=== PATIENT | male | born 1945 | race Asian ===

== ENCOUNTER 2017-03-17 08:00 | Inpatient (IN) | payer MEDICARE, MEDICAID ==
[2017-03-17] VITALS (66 sets, daily range): BP systolic 68–249; BP diastolic 38–126
[~2017-03-17] VITALS: Ht 160 cm; Wt 73.5 kg
[~2017-03-17 08:00] MED LIST: ALBU90AE IH; ALLO100T PO; ASPI81TA2 PO; ATOR40TA PO; CARV25TA2 PO; CLON0.2T PO; COLC0.6T69 PO; FURO20TA4 PO; GLIM2TAB2 PO; HYDR-4076 PO; INSU3INS6 SQ; LINA5TAB PO; LISI40TA4 PO; NITR0.4T SL; OMEP20CA10 PO
--- NOTE | 2017-03-17 09:50 | NUR ---
RN NOTES PATIENT BROUGHT IN BY PARAMEDICS FROM [facility], PATIENT IS DIRECT ADMISSION. PATIENT WAS A/O X4. DENIES CHEST PAIN. COMPLAINT OF SHORTNESS OF BREATH, ON O2 2LPM VIA NASAL CANULA WITH O2 SAT 92%, YH=279/83, HR=85, R=31, T=99.1. PATIENT STATED THAT HE HAS NOT TAKEN ANY OF HIS BP MEDS SINCE LAST NIGHT. O2 ADJUSTED TO 5LPM, O2SAT WAS 97%. BED LOCKED, LOWEST POSITION, SIDERAILS UPX2. NOTIFIED FUELS ENGINEER AND MD OF PATIENT'S CONDITION. WILL CONTINUE TO MONITOR ACCORDINGLY.
[2017-03-17] MEDS ORDERED: CARV12.52 PO (10:14)
[2017-03-17] MEDS ORDERED: NIFE30TA2 PO (10:14)
[2017-03-17] MEDS ORDERED: GLIM4TAB2 PO (10:14)
[2017-03-17] MEDS ORDERED: LISI-603 PO (10:14)
[2017-03-17] MEDS ORDERED: SIMV40TA5 PO (10:14)
--- NOTE | 2017-03-17 10:20 | NUR ---
RN NOTES PATIENT SOB GETTING WORST. O2SAT DESATTING FROM 97% TO 67%. CALLED RAPID RESPONSE. SEE RAPID RESPONSE FLOWSHEET.
--- NOTE | 2017-03-17 10:21 | NUR ---
RN NOTES UNABLE TO SCAN MEDICATIONS 1020:NTG 0.4mg SL q5min x3 doses. 1031:Lasix 80mg iv x1 1036:Hydralazine 10mg ivp x 1 1046:Metoprolol 5mg iv x 1 1050:Patient transfered to ICU Rm 254
[2017-03-17 10:52] LABS: ABG BASE EXCESS -2.2 mmol/L; ABG OXYGEN SATURATION 91.6 % (92.0-98.5); ABG PH 7.217 (7.350-7.450); ABG PO2 74.2 mmHg (75.0-100.0); AaDO2 277.7 mmHg; COHb 0.8 % (0.5-1.5); MetHb 0.6 % (0.0-1.5); O2Hb 90.3 % (94.0-97.0); SITE, ABG Right Radial; VENT MODE, BG SIMPLE MASK
[2017-03-17 10:55] LABS: BASOPHILS # (AUTO) 0.1 /CMM (0.0-0.2); BASOPHILS % (AUTO) 0.3 % (0.0-2.0); EOSINOPHILS # (AUTO) 0.3 /CMM (0.0-0.7); EOSINOPHILS % (AUTO) 1.1 % (0.0-6.0); HEMATOCRIT 46 % (39-51); HEMOGLOBIN 14.8 g/dL (13.5-17.5); LYMPHOCYTES # (AUTO) 5.3 /CMM (0.8-4.8); LYMPHOCYTES % (AUTO) 21.8 % (20.0-44.0); MEAN CORPUSCULAR HEMOGLOBIN 29 PG (26.0-33.0); MEAN CORPUSCULAR HGB CONC 32 g/dl (31.0-36.0); MEAN CORPUSCULAR VOLUME 91 fL (80-96); MONOCYTES # (AUTO) 1.8 /CMM (0.1-1.30); MONOCYTES % (AUTO) 7.4 % (2.0-12.0); NEUTROPHILS # (AUTO) 16.9 /CMM (1.8-8.9); NEUTROPHILS % (AUTO) 69.4 % (43.0-81.0); PLATELET COUNT (AUTO) 130 /CMM (150-450); RDW COEFFICIENT OF VARIATION 14.4 (11.5-15.0); RED BLOOD CELL COUNT(AUTO) 5.09 MIL/uL (4.5-6.0); WHITE BLOOD COUNT (AUTO) 24.4 K/uL (4.3-11.0)
[2017-03-17 11:03] LABS: CALCIUM, SERUM 9.1 mg/dL (8.5-10.1); CARBON DIOXIDE 29 mmol/L (21-32); CHLORIDE 106 mmol/L (98-107); CREATININE 1.7 mg/dL (0.6-1.3); GLUCOSE 191 mg/dL (74-106); POTASSIUM 4.5 mmol/L (3.5-5.1); SODIUM SERUM 143 mmol/L (136-145); UREA NITROGEN, BLOOD 20 mg/dL (7-18)
[2017-03-17 11:10] LABS: EOSINOPHILS % (MANUAL) 2 % (0-4); LYMPHOCYTES % (MANUAL) 23 % (16-48); MONOCYTES % (MANUAL) 6 % (0-11.0); NEUTROPHILS % (MANUAL) 69 (42-76)
--- NOTE | 2017-03-17 11:10 | NUR ---
RT PT PRESENTED IN RESPIRATORY DISTRESS, PT INTUBATED BY REGINALD LEON IN ONE ATTEMPT. POSITIVE CO2 CHANGE AND EQUAL BILATERAL BREATHE SOUNDS AND CHEST RISE. 7.5 ETT SECURED AT 24CM AT THE LIP LINE. PT PLACED ON VENT WITH NOTED SETTINGS. VENT ALARMS ARE SET AND AUDIBLE WITH BVM BY BEDSIDE. LIME KILN OPERATOR CUFF PRESSURE NOTED. VENT IS PLUGGED INTO RED OUTLET. WILL CONTINUE TO MONITOR. Addendum: 03/17/17 at 1128 by SVETA HOWE RT Amended: Links added.
[2017-03-17 11:14] LABS: ALANINE AMINOTRANSFERASE 32 U/L (12-78); ALBUMIN 4.1 g/dL (3.4-5.0); ALKALINE PHOSPHATASE 81 U/L (46-116); ASPARTATE AMINOTRANSFERASE 15 U/L (15-37); PHOSPHORUS 4.1 mg/dL (2.5-4.9); TOTAL PROTEIN, SERUM 8.2 g/dL (6.4-8.2)
--- NOTE | 2017-03-17 11:20 | NUR ---
PERFORMANCE IMPROVEMENT CONSULTANT NOTE RCVD PT TRANSFERRED FROM FOR SOB, PICK PULLING MACHINE OPERATOR CALLED VIDHI LEON AT BEDSIDE ABOUT TO INTUBATE. PT'S AT BEDSIDE. PT SOB NOT TOLERATING BIPAP TRIAL. ST ON TELE WITH 1ST AVB, ELEVATED T WAVE. PT INTUBATED ETT 7.5 25 AT LIP TOLERATING ORDERED VENT SETTINGS. OG TUBE PLACED WAITING FOR PLACEMENT CONFIRMATION VIA CX WILL MONITOR. MENDOZA IN PLACE. IV SITES C/D/I/PATENT. NO S/O INFILTRATION/PHLEBITIS OBSERVED UPON FLUSHING. WILL CONTINUE TO MONITOR PT FOR SAFETY AND COMFORT. CALL LIGHT WITHIN REACH. BED IN LOW AND LOCKED POSITION. PT'S BP TRENDING DOWN VIDHI LEON REQUESTED PICC LINE INSERTION. RCVD ORDER AND TO START PT ON LEVO GTT. ORDERS ACKNOWLEDGED AND CARRIED OUT. PHARMACY CALLED BY MAO GARCIA.
--- NOTE | 2017-03-17 12:16 | NUR ---
LOADER OPERATOR/GROUND LEADER NOTE PHARMACY CALLED REQUESTING LEVO GTT PT'S SBP 60s SPOKE WITH VIDHI THEY'RE WORKING ON IT. WILL F/U.
[2017-03-17 12:26] LABS: ABG BASE EXCESS -2.6 mmol/L; ABG PCO2 42.3 mmHg (35.0-45.0); ABG PH 7.352 (7.350-7.450); ABG PO2 206.1 mmHg (75.0-100.0); AaDO2 464.6 mmHg; SITE, ABG Left Radial; VENT MODE, BG ac 16 550 100% +8
--- NOTE | 2017-03-17 13:12 | NUR ---
OFFICE LEAD NOTE PICC LINE CONSENT OBTAINED FROM PT'S WHO REMAINS AT BEDSIDE.
[2017-03-17 15:19] LABS: APPEARANCE,URINE CLEAR (CLEAR); BILIRUBIN,URINE NEGATIVE (NEGATIVE); BLOOD, URINE NEGATIVE Ery/uL (NEGATIVE); COLOR,URINE YELLOW (YELLOW); KETONES,URINE NEGATIVE (NEGATIVE); LEUKOCYTE ESTERASE ,URINE NEGATIVE (NEGATIVE); NITRITE, URINE NEGATIVE (NEGATIVE); PH,URINE 6.5 (5.0-8.0); PROTEIN,URINE 2+ mg/dl (NEGATIVE); UGLUCOSE NEGATIVE (NEGATIVE); UROBILINOGEN,URINE 0.2 EU/dL (0.2)
[2017-03-17 15:27] LABS: BACTERIA,URINE Rare /HPF (None Seen); RBC,URINE 0-2 /HPF (0-2); SQUAMOUS EPITHELIAL CELL,UR 0-2 /HPF (None Seen); WBC,URINE 0-2 /HPF (0-3)
--- NOTE | 2017-03-17 16:15 | NUR ---
MEDICATION COURT MANAGER NOTE BP MEDS HELD, PT ON VASOPRESSORS EARLIER IN THE PM. WILL CONTINUE TO MONITOR.
--- NOTE | 2017-03-17 18:30 | NUR ---
DIAMOND CLEANER NOTE PT REMAINS STABLE, SEDATED, ABLE TO FOLLOW COMMANDS. TOLERATING ORDERED VENT SETTINGS WELL. SR ON TELE WITH 1ST AVB. OG TUBE PLACEMENT VERIFIED BY AUSCULTATION/ASPIRATION. NO RESIDUAL OBTAINED. IV SITES C/D/I/PATENT. NO S/O INFILTRATION/PHLEBITIS OBSERVED. RADIOLOGY CALLED AGAIN PENDING CX REPORT FOR PICC LINE PLACEMENT. PT'S CARE WILL BE ENDORSED TO HIDE SHAKER RN FOR CONTINUITY OF CARE. BED IN LOW AND LOCKED POSITION. CALL LIGHT WITHIN REACH.
--- NOTE | 2017-03-17 20:37 | NUR ---
received pt from day shift, sedated on Diprivan on 30mcg, SR, 1 degree AV block, receiving levo at 2mcg, on the vent, lungs congested, no edema, OG clamped, f/c OK output, v/s stable, no pain, pt turned and repositioned, family at the bedside.
[2017-03-18] VITALS (46 sets, daily range): BP systolic 86–181; BP diastolic 41–82
--- NOTE | 2017-03-18 01:04 | NUR ---
pt is resting in the bed, off of levo since 2299, sedated on Diprivan at 30mcg, v/s stable, no pain, pt turned and repositioned q2hrs.
--- NOTE | 2017-03-18 04:12 | NUR ---
pt is resting in the bed, no acute distress overnight, sedated on Diprivan at 35mcg, restraints on, v/s stable, no pain, pt cleaned, changed and repositioned q2hrs.
[2017-03-18 04:58] LABS: BASOPHILS % (AUTO) 0.3 % (0.0-2.0); EOSINOPHILS # (AUTO) 0.3 /CMM (0.0-0.7); EOSINOPHILS % (AUTO) 2.3 % (0.0-6.0); HEMATOCRIT 38 % (39-51); HEMOGLOBIN 12.4 g/dL (13.5-17.5); LYMPHOCYTES # (AUTO) 1.6 /CMM (0.8-4.8); LYMPHOCYTES % (AUTO) 12.3 % (20.0-44.0); MEAN CORPUSCULAR HEMOGLOBIN 30 PG (26.0-33.0); MEAN CORPUSCULAR HGB CONC 33 g/dl (31.0-36.0); MEAN CORPUSCULAR VOLUME 90 fL (80-96); MONOCYTES # (AUTO) 1.1 /CMM (0.1-1.30); MONOCYTES % (AUTO) 8.1 % (2.0-12.0); PLATELET COUNT (AUTO) 98 /CMM (150-450); RDW COEFFICIENT OF VARIATION 14.6 (11.5-15.0); RED BLOOD CELL COUNT(AUTO) 4.21 MIL/uL (4.5-6.0)
[2017-03-18 05:20] LABS: CALCIUM, SERUM 8.1 mg/dL (8.5-10.1); CARBON DIOXIDE 28 mmol/L (21-32); CHLORIDE 105 mmol/L (98-107); CREATININE 2.3 mg/dL (0.6-1.3); GLUCOSE 157 mg/dL (74-106); PHOSPHORUS 3.5 mg/dL (2.5-4.9); POTASSIUM 3.2 mmol/L (3.5-5.1); SODIUM SERUM 143 mmol/L (136-145); UREA NITROGEN, BLOOD 26 mg/dL (7-18)
[2017-03-18 05:39] LABS: BAND % (MANUAL) 1 % (0.0-5.0); EOSINOPHILS % (MANUAL) 2 % (0-4); LYMPHOCYTES % (MANUAL) 24 % (16-48); MONOCYTES % (MANUAL) 4 % (0-11.0); NEUTROPHILS % (MANUAL) 69 (42-76)
--- NOTE | 2017-03-18 07:30 | NUR ---
ICU/RN: Pt received on vent, breathing even and unlabored, awakens to name and light touch. Follows commands. THAO PICC patent, flushed with good blood return. FC draining well to gravity. Oriented to POC, nods head in agreement. Will cont to monitor pt.
--- NOTE | 2017-03-18 08:45 | NUR ---
ICU/RN: Dr Mayela serrano; updated on pt status. For weaning trial today. Discussed with at bedside. In agreement with POC.
[2017-03-18 08:57] LABS: ABG BASE EXCESS 2.2 mmol/L; ABG PH 7.454 (7.350-7.450); ABG PO2 131.5 mmHg (75.0-100.0); AaDO2 182.3 mmHg; COHb 0.3 % (0.5-1.5); MetHb 0.6 % (0.0-1.5); O2Hb 97.1 % (94.0-97.0); PEEP,BG 8 cm H2O; SITE, ABG Right Radial; VENT MODE, BG AC MODE; VT, ABG 550 mL
--- NOTE | 2017-03-18 09:17 | NUR ---
ICU/RN: Dr Henry at bedside, updated on pt status. Per ok to hold Lovenox dose, insulin. Plan for weaning trials per associate dean of women. Spoke with at bedside. In agreement with POC. Will cont to monitor pt.
--- NOTE | 2017-03-18 13:30 | NUR ---
ICU/RN: Pt off sedation, communicates via notepad. Denies pain and discomfort. Educated on breathing trials.
[2017-03-18 15:24] LABS: ABG BASE EXCESS 3.2 mmol/L; ABG OXYGEN SATURATION 94.2 % (92.0-98.5); ABG PCO2 45.1 mmHg (35.0-45.0); ABG PH 7.416 (7.350-7.450); ABG PO2 72.8 mmHg (75.0-100.0); AaDO2 160.5 mmHg; COHb 0.1 % (0.5-1.5); MetHb 0.6 % (0.0-1.5); O2Hb 93.5 % (94.0-97.0); PEEP,BG 5 cm H2O; SITE, ABG Left Radial
--- NOTE | 2017-03-18 15:40 | NUR ---
ICU/RN: S/P extubation. Tolerated well. Pre-extubation suctioning performed with moderate amount of thick white secretions out. at bedside.
[2017-03-18 16:06] LABS: CREATININE, URINE 89.5 MG/DL (30.0-125.0)
--- NOTE | 2017-03-18 19:22 | NUR ---
ICU/RN: Pt resting in bed comfortably, no distress noted, hemodynamically stable. Care endorsed to PM RN for SUZETTE.
--- NOTE | 2017-03-18 19:25 | NUR ---
INFORMATION TECHNOLOGY TECHNICIAN DURING REPORT MT REPORTED A CHANGE IN HEART RHYTHM, PT CONVERTED FROM NSR TO AFIB. WILL ORDER EKG AND CALL PCP WITH CHANGES. WILL CONTINUE TO MONITOR.
--- NOTE | 2017-03-18 19:30 | NUR ---
FEDERAL DISTRICT CLERK INITIAL NOTE RECEIVED PT FROM [facility]. PT IN BED. A/A/O X4. AT BEDSIDE. LUNG SOUNDS CLEAR. BOWEL SOUNDS PRESENT. MENDOZA INTACT AND DRAINING YELLOW URINE. PULSES PRESENT. IV PATENT AND INTACT. PT REMAINS NPO AT THIS TIME. SWALLOW EVAL SCHEDULED FOR MORNING. BED IN LOW LOCKED POSITION. CALL LIGHT WITHIN REACH. WILL CONTINUE TO MONITOR.
--- NOTE | 2017-03-18 19:50 | NUR ---
GEOLOGY TECHNICIAN SPOKE WITH HORTENCIA GEORGE NP. INFORMED HIM OF EKG CHANGES. PT IS COMFORTABLE, NO COMPLAINTS OF CHEST PAIN, HR CONTROLLED 70'S. NEW ORDERS RECEIVED FOR TROP NOW AND TROP IN AM. WILL CALL WITH ANY ABNORMAL LABS.
--- NOTE | 2017-03-18 22:00 | NUR ---
RESTUARANT CREW WORKER BS 184 3 UNIT REGULAR INSULIN GIVEN. GAVE PT APPLE SAUCE WITH 2200 MEDS. PT TOLERATED FEEDING WELL. NO COUGHING. HOB 45 DEGREES. WILL CONTINUE TO MONITOR.
--- NOTE | 2017-03-18 22:50 | NUR ---
BOX TENDER REPORT GIVEN TO MAREK IN ICU OVERFLOW FOR SUZETTE. PT TRANSPORTED VIA ACLS PROTOCOL. NAVI RN AND BONITA FULTON TRANSPORTING.
--- NOTE | 2017-03-18 23:00 | NUR ---
MICROSTRATEGY BI DEVELOPER NOTES RECEIVED PT IN BED, A/O X3. AWAKE. TELE READS SR WTH 1ST DEGREE BLOCK AT 78 BPM, HX OF AFIB. ON O2 VIA NC AT 4 LPM, SILVIA WELL. MENDOZA CATH IN PLACE, DRAINING WELL. THAO PICC AND RIGHT HAND 20G AND RAC 20G. RUNNING D51/2NS AT 50 ML/HR VIA PICC. NPO AT THIS TIME, SWALLOW EVAL ORDERED. PT DENIES PAIN AT THIS TIME. ALL NEEDS MET. CALL LIGHT WITHIN REACH. HOB ELEVATED, SIDE RAILS X3. ON KCI MATTRESS.
[2017-03-19] VITALS (14 sets, daily range): BP systolic 96–149; BP diastolic 40–83
[2017-03-19 05:05] LABS: BASOPHILS % (AUTO) 0.3 % (0.0-2.0); EOSINOPHILS # (AUTO) 0.5 /CMM (0.0-0.7); EOSINOPHILS % (AUTO) 4.9 % (0.0-6.0); HEMATOCRIT 36 % (39-51); HEMOGLOBIN 12.1 g/dL (13.5-17.5); LYMPHOCYTES # (AUTO) 1.7 /CMM (0.8-4.8); LYMPHOCYTES % (AUTO) 15.2 % (20.0-44.0); MEAN CORPUSCULAR HEMOGLOBIN 30 PG (26.0-33.0); MEAN CORPUSCULAR HGB CONC 33 g/dl (31.0-36.0); MEAN CORPUSCULAR VOLUME 90 fL (80-96); MONOCYTES # (AUTO) 1.1 /CMM (0.1-1.30); MONOCYTES % (AUTO) 9.5 % (2.0-12.0); NEUTROPHILS # (AUTO) 7.9 /CMM (1.8-8.9); NEUTROPHILS % (AUTO) 70.1 % (43.0-81.0); PLATELET COUNT (AUTO) 114 /CMM (150-450); RDW COEFFICIENT OF VARIATION 14.1 (11.5-15.0); RED BLOOD CELL COUNT(AUTO) 4.03 MIL/uL (4.5-6.0); WHITE BLOOD COUNT (AUTO) 11.2 K/uL (4.3-11.0)
[2017-03-19 05:21] LABS: TROPONIN I 0.109 ng/mL (0.00-0.056)
[2017-03-19 05:29] LABS: ALANINE AMINOTRANSFERASE 17 U/L (12-78); ALBUMIN 2.8 g/dL (3.4-5.0); ALKALINE PHOSPHATASE 50 U/L (46-116); ASPARTATE AMINOTRANSFERASE 11 U/L (15-37); BILIRUBIN,TOTAL 0.8 mg/dL (0.2-1.0); CALCIUM, SERUM 8.1 mg/dL (8.5-10.1); CARBON DIOXIDE 31 mmol/L (21-32); CHLORIDE 109 mmol/L (98-107); GLUCOSE 158 mg/dL (74-106); MAGNESIUM 2.1 mg/dL (1.8-2.4); PHOSPHORUS 2.8 mg/dL (2.5-4.9); POTASSIUM 3.5 mmol/L (3.5-5.1); SODIUM SERUM 146 mmol/L (136-145); UREA NITROGEN, BLOOD 22 mg/dL (7-18)
--- NOTE | 2017-03-19 07:12 | NUR ---
COIL SHAPER NOTES RECEIVED PATIENT AOX4 , NOT IN ACUTE DISTRESS , DENIES SOB AND DISCOMFORT AT THIS TIME , SPO2 OF 985 VIA 4LPM NC , SR 85 ON BEDSIDE MONITOR , FC DRAINING WELL VIA GRAVITY , THAO PICC LINE PATENT AND INTACT , R HAD # 20 AND R AC # 20 PATENT AND INTACT SL , ALL NEEDS ATTENDED , BED ON LOW AND LOCKED POSITION , SIDE RAILS X2 ,CALL LIGHT WITHIN REACH , HOB @ 35 , WILL CONTINUE TO MONITOR.
--- NOTE | 2017-03-19 09:00 | NUR ---
MECHANICAL ASSEMBLY NOTES LORETTA 25UNITS HELD , PT IS NPO , SEE BS @ 0900 , WILL CONTINUE TO MONITOR
--- NOTE | 2017-03-19 11:30 | NUR ---
SHAFTING WORKER NOTES SEEN AND EVALUATED BY DR PARR , DISCUSSED LABS , CHEST XRAY RESULT , PT ON 2LPM NC SPO2 OF 98% ,DENIES SOB AND DISCOMFORT AT THIS TIME , SR 85 ON TELE MONITOR , STARTED ON MECHANICAL SOFT DIET ( CCHO ) TOLERATING WELL , AWARE
--- NOTE | 2017-03-19 13:00 | NUR ---
INTEGRATION TECHNICIAN NOTES BP MEDICATIONS HELD DUE TO LOW BP 101/45 , WILL CONTINUE TO MONITOR
--- NOTE | 2017-03-19 13:20 | NUR ---
PRODUCTION DRILLING MACHINE OPERATOR NOTES MENDOZA CATHETER DISCONTINUED ORDERED , PT TOLERATED WELL , WILL MONITOR FOR POST VOID RESIDUALS , URINAL AT BEDSIDE
--- NOTE | 2017-03-19 16:30 | NUR ---
PUBLIC HEALTH SPECIALIST NOTES PT ABLE TO VOID IN THE URINAL POST FC REMOVAL , NOTED WITH 200ML YELLOW URINE OUTPUT
--- NOTE | 2017-03-19 18:57 | NUR ---
RN CLOSING NOTES PATIENT STABLE AT THIS TIME NOT IN ACUTE DISTRESS , DENIES SOB AND DISCOMFORT AT THIS TIME , ON 2LPM NC , SR 75 ON BEDSIDE MONITOR , THAO PICC LINE PATENT AND INTACT WITH NS @ TKO , BED ON LOW AND LOCKED POSITION , SIDE RAILS X2 ,CALL LIGHT WITHIN REACH , HOB @ 35 , REPORT GIVEN TO PM NURSE FOR CONTINUITY OF CARE
--- NOTE | 2017-03-19 20:00 | NUR ---
Received patient from previous shift A/O X 4.VS stable.SR with 1st degree AVB. With O2 2L NC sat 98%.Denies chest pain or sob.NS @ TKO infusing to nighat picc line. Site intact.Turned and repositioned.Call light at BS with instructions.Patient made aware of plan of care.Verbalized understanding.
[2017-03-20] VITALS (7 sets, daily range): BP systolic 111–162; BP diastolic 47–76
[2017-03-20 06:33] LABS: BASOPHILS % (AUTO) 0.2 % (0.0-2.0); EOSINOPHILS # (AUTO) 0.8 /CMM (0.0-0.7); EOSINOPHILS % (AUTO) 8.1 % (0.0-6.0); HEMATOCRIT 38 % (39-51); HEMOGLOBIN 12.1 g/dL (13.5-17.5); LYMPHOCYTES # (AUTO) 1.6 /CMM (0.8-4.8); LYMPHOCYTES % (AUTO) 16.8 % (20.0-44.0); MEAN CORPUSCULAR HEMOGLOBIN 29 PG (26.0-33.0); MEAN CORPUSCULAR HGB CONC 32 g/dl (31.0-36.0); MEAN CORPUSCULAR VOLUME 91 fL (80-96); MONOCYTES # (AUTO) 1.1 /CMM (0.1-1.30); MONOCYTES % (AUTO) 11.2 % (2.0-12.0); NEUTROPHILS # (AUTO) 6.2 /CMM (1.8-8.9); NEUTROPHILS % (AUTO) 63.7 % (43.0-81.0); PLATELET COUNT (AUTO) 130 /CMM (150-450); RDW COEFFICIENT OF VARIATION 14.7 (11.5-15.0); RED BLOOD CELL COUNT(AUTO) 4.12 MIL/uL (4.5-6.0); WHITE BLOOD COUNT (AUTO) 9.8 K/uL (4.3-11.0)
[2017-03-20 06:53] LABS: CALCIUM, SERUM 8.5 mg/dL (8.5-10.1); CARBON DIOXIDE 30 mmol/L (21-32); CHLORIDE 110 mmol/L (98-107); CREATININE 1.8 mg/dL (0.6-1.3); GLUCOSE 205 mg/dL (74-106); MAGNESIUM 2.3 mg/dL (1.8-2.4); POTASSIUM 3.8 mmol/L (3.5-5.1); SODIUM SERUM 146 mmol/L (136-145); UREA NITROGEN, BLOOD 24 mg/dL (7-18)
--- NOTE | 2017-03-20 07:05 | NUR ---
RN INITIAL NOTES RECEIVED PT AWAKE, A/OX4. NO RESPIRATORY DISTRESS NOTED. NO SOB NOTED. ON 02 AT 2LPM VIA NC. DENIES ANY PAIN. PT ON TELE MONITOR. THAO PICC IN PLACE. BLE ELEVATED. PT COMFORTABLE. ASSISTED IN REPOSITIONING. CALL LIGHT WITHIN REACH. WILL MONITOR.
--- NOTE | 2017-03-20 09:30 | NUR ---
RN NOTES SEEN AND EXAMINED BY DR. PARR. AWARE OF CURRENT LAB VALUES. ON 02 AT 2LPM VIA NC. NO RESPIRATORY DISTRESS NOTED. NO SOB NOTED. DENIES ANY PAIN. LABS IN AM. WILL MONITOR
--- NOTE | 2017-03-20 10:10 | NUR ---
RN NOTES SEEN AND EXAMINED BY DR. MELCHOR. PT ON 02 AT 2LP VIA AZ. NO SOB NOTED. DENIES ANY PAIN. NO ORDER MADE. WILL CONTINUE TO MONITOR.
--- NOTE | 2017-03-20 18:56 | NUR ---
RN CLOSING NOTES PT REMAINS STABLE. NO RESPIRATORY DISTRESS NOTED. NO SOB NOTED. DENIES ANY PAIN. PICC LINE IN PLACE. KEPT CLEAN AND DRY. ALL NEEDS ATTENDED AND MET. BLE ELEVATED. CALL LIGHT UNKNOWN REACH. WILL ENDORSE FOR CONTINUITY OF CARE.
--- NOTE | 2017-03-20 19:15 | NUR ---
RN INITIAL NOTES RECEIVED PATIENT IN BED, AWAKE AND ALERT X4. PATIENT WITH NO C/O PAIN AND DISCOMFORT. PATIENT ON 2LPM OF O2 VIA NC, PATIENT WITH NO DISTRESS, NOTED WITH OCCASIONAL COUGHING, WITH SPUTUM PRODUCTION OF CLEAR, WHITE SPUTUM. PATIENT DENIES ANY SOB AND DIFFICULTY BREATHING. PATIENT WITH THAO PICC LINE, FLUSHED AND PATENT. PATIENT'S NEEDS ANTICIPATED AND MET. SAFETY AND COMFORT ENSURED. BED IN LOW AND LOCKED POSITION. CALL LIGHT IN REACH. WILL MONITOR.
--- NOTE | 2017-03-20 23:00 | NUR ---
RN NOTES PATIENT PROVIDED WITH PRN BREATHING TREATMENT PER PATIENT'S REQUEST TO AID WITH HIS SLEEP. COORDINATED WITH RT FOR ADMINISTRATION. PATIENT REASSESSED, SLEEPING COMFORTABLY, NO RESPIRATORY DISTRESS. NO NOTED COUGHING AT THIS TIME.
[2017-03-21 04:00] VITALS: BP 162/77
[2017-03-21 06:31] LABS: BASOPHILS % (AUTO) 0.1 % (0.0-2.0); EOSINOPHILS # (AUTO) 0.9 /CMM (0.0-0.7); EOSINOPHILS % (AUTO) 9.8 % (0.0-6.0); HEMATOCRIT 38 % (39-51); HEMOGLOBIN 12.5 g/dL (13.5-17.5); LYMPHOCYTES # (AUTO) 1.6 /CMM (0.8-4.8); LYMPHOCYTES % (AUTO) 17.3 % (20.0-44.0); MEAN CORPUSCULAR HEMOGLOBIN 30 PG (26.0-33.0); MEAN CORPUSCULAR HGB CONC 33 g/dl (31.0-36.0); MEAN CORPUSCULAR VOLUME 90 fL (80-96); MONOCYTES # (AUTO) 1.1 /CMM (0.1-1.30); MONOCYTES % (AUTO) 11.6 % (2.0-12.0); NEUTROPHILS # (AUTO) 5.7 /CMM (1.8-8.9); NEUTROPHILS % (AUTO) 61.2 % (43.0-81.0); PLATELET COUNT (AUTO) 147 /CMM (150-450); RED BLOOD CELL COUNT(AUTO) 4.18 MIL/uL (4.5-6.0); WHITE BLOOD COUNT (AUTO) 9.3 K/uL (4.3-11.0)
[2017-03-21 06:48] LABS: CALCIUM, SERUM 8.7 mg/dL (8.5-10.1); CARBON DIOXIDE 28 mmol/L (21-32); CHLORIDE 108 mmol/L (98-107); CREATININE 1.6 mg/dL (0.6-1.3); GLUCOSE 185 mg/dL (74-106); MAGNESIUM 2.2 mg/dL (1.8-2.4); PHOSPHORUS 2.9 mg/dL (2.5-4.9); POTASSIUM 3.5 mmol/L (3.5-5.1); SODIUM SERUM 145 mmol/L (136-145); UREA NITROGEN, BLOOD 21 mg/dL (7-18)
--- NOTE | 2017-03-21 07:40 | NUR ---
RN NOTES RECEIVED PATIENT IN BED, AWAKE AND ALERT X4. PATIENT WITH NO C/O PAIN AND DISCOMFORT. PATIENT ON 2LPM OF O2 VIA NC, PATIENT WITH NO DISTRESS. PATIENT DENIES ANY SOB AND DIFFICULTY BREATHING. PATIENT WITH THAO PICC LINE, FLUSHED AND PATENT. PATIENT'S NEEDS ANTICIPATED AND MET. SAFETY AND COMFORT ENSURED. BED IN LOW AND LOCKED POSITION. CALL LIGHT IN REACH. WILL MONITOR.
[2017-03-21 08:00] VITALS: BP 149/71
--- NOTE | 2017-03-21 08:48 | NUR ---
DAILY ABG'S CANCELLED PER DR. MELCHOR.
[2017-03-21] MEDS ORDERED: LEVO250T2 PO (11:45)
[2017-03-21] MEDS ORDERED: ASPI325T2 PO (11:45)
[2017-03-21] MEDS ORDERED: FURO40TA5 PO (11:50)
[2017-03-21 13:17] VITALS: BP 136/64
--- NOTE | 2017-03-21 16:33 | NUR ---
RN NOTES PT DISCHARGED FROM UNIT IN STABLE CONDITION. TRANSPORTED TO HOME VIA PRIVATE CAR WITH . PT AMBULATORY WITH WALKER. ALL DISCHARGE INSTRUCTIONS GIVEN, EXITCARE PROVIDED. PRESCRIPTION GIVEN. PT REMINDED OF FOLLOW UP APPOINTMENT WITH . PAPERWORK SIGNED BY PT, COPIES PROVIDED. PT DISCHARGED WITH WALKER, PROVIDED. ID BAND REMOVED. PICCLINE REMOVED, PRESSURE APPLIED COVERED WITH CLEAN, DRY DRESSING.
== END 2017-03-21 16:06 | disposition home health service (06) | DRG 871 ==
LOC: TELE 09:24 → ICU 10:55 → ICUOV 03-18 23:20 → TELE-TD 03-19 12:25 → TELE1 03-20 08:50 → MEDSG1 03-20 18:41
PROVIDERS: ADMIT Internal Medicine; ATTEND Internal Medicine
PROC: 5A1945Z Respiratory Ventilation, 24-96 Consecutive Hours (ICD-10-PCS; principal; 2017-03-17)
PROC: 0BH17EZ Insertion of Endotracheal Airway into Trachea, Via Natural or Artificial Opening (ICD-10-PCS; 2017-03-17)
PROC: 02HV33Z Insertion of Infusion Device into Superior Vena Cava, Percutaneous Approach (ICD-10-PCS; 2017-03-17)
PROC: B548ZZA Ultrasonography of Superior Vena Cava, Guidance (ICD-10-PCS; 2017-03-17)
DX: A41.9 Sepsis, unspecified organism (principal); I21.4 Non-ST elevation (NSTEMI) myocardial infarction; J69.0 Pneumonitis due to inhalation of food and vomit; I50.43 Acute on chronic combined systolic (congestive) and diastolic (congestive) heart failure; J96.01 Acute respiratory failure with hypoxia; J96.02 Acute respiratory failure with hypercapnia; R65.21 Severe sepsis with septic shock; N17.0 Acute kidney failure with tubular necrosis; I13.0 Hypertensive heart and chronic kidney disease with heart failure and stage 1 through stage 4 chronic kidney disease, or unspecified chronic kidney disease; I16.1 Hypertensive emergency; D64.9 Anemia, unspecified; E78.5 Hyperlipidemia, unspecified; F17.210 Nicotine dependence, cigarettes, uncomplicated; I25.10 Atherosclerotic heart disease of native coronary artery without angina pectoris; N18.9 Chronic kidney disease, unspecified; E11.22 Type 2 diabetes mellitus with diabetic chronic kidney disease; Z95.1 Presence of aortocoronary bypass graft; G47.33 Obstructive sleep apnea (adult) (pediatric); M10.9 Gout, unspecified
CPT/HCPCS: 31720; 36415; 36600; 71010-TC; 76770-TC; 80048-TC; 80053-TC; 81000-TC; 82570-TC; 82803-TC; 82962-TC; 83605-TC; 83735-TC; 84100-TC; 84300-TC; 84484-TC; 85025-TC; 87040-TC; 87070-TC; 87081-TC; 87086-TC; 92611-TC; 93307-TC; 94003-TC; 94640-TC; 94799-TC; 99082-TC; A4216; A4606; C1751; J0330; J0360; J1650; J1815; J1940; J2543; J3480; J3490; J7030; J7050; J7060; Z7610